=== PATIENT | female | born 1970 | race Two or more races ===

== ENCOUNTER → 2024-07-20 | Outpatient (CLI) | payer MEDICAID, SELFPAY ==
--- NOTE | 2024-07-20 14:30 | XR_ITS ---
Examination: Screening digital mammography, bilateral Computer aided detection 3-D breast Tomosynthesis, bilateral Date and time of exam: July 20, 2024 1409 hours Compared to mammograms dating to August 19, 2015 Indication: Screening Technique: Nonmagnified MLO, CC views of the breasts to been obtained, reconstructed from 3-D Tomosynthesis images. R2 computer aided detection program utilized for evaluation of suspicious masses and/or abnormal calcifications. 3-D Tomosynthesis images obtained. Findings: Scattered areas of fibroglandular density Stable focal asymmetry outer right and left breast Breast biopsy marker upper outer right breast 8mm nodular asymmetry retroareolar region right breast Impression: BI-RADS Category 0: Incomplete: Need additional imaging evaluation Recommend spot tomographic views retroareolar 2 exclude nodule retroareolar region right breast as well as right breast sonography to complete the workup
== END | disposition home or self-care (01) ==
PROVIDERS: Referring Provider Nurse Practitioner Family; Visit Provider Nurse Practitioner Family
DX: Z12.31 Encounter for screening mammogram for malignant neoplasm of breast (principal); N63.41 Unspecified lump in right breast, subareolar
CPT/HCPCS: 77063; 77067

== ENCOUNTER → 2025-01-30 | Outpatient (CLI) | payer MEDICAID, SELFPAY ==
--- NOTE | 2025-01-30 16:10 | XR_ITS ---
Examination: Left hip AP, lateral, AP pelvis 3 views Technique: Hip AP lateral, AP pelvis, 3 views Exam date and time: January 30, 2025, 1641 hours INDICATIONS: Left hip pain beginning 2 months ago FINDINGS: No left hip fracture or dislocation Minimal bilateral hip osteoarthritis Bones of the pelvis intact IMPRESSION: Minimal bilateral hip osteoarthritis.
--- NOTE | 2025-01-30 16:10 | XR_ITS ---
EXAMINATION: Lumbar spine 3 views TECHNIQUE: AP lateral: Lateral lower lumbar spine 3 views Date and time: January 30, 2025, 1649 hours INDICATION: Lower back pain beginning 2 months ago. FINDINGS: Adequate alignment lumbar vertebral bodies No lumbar fracture Mild diffuse lumbar disc narrowing Mild lumbar spondylosis IMPRESSION: Mild diffuse lumbar degenerative disc disease
--- NOTE | 2025-01-30 16:10 | XR_ITS ---
EXAMINATION: Left elbow 2 views TECHNIQUE: AP lateral left elbow 2 views Date and time: January 30, 2025, 1643 hours INDICATION: Elbow pain 1 month. FINDINGS: Minimal osteophyte formation coronoid process of the ulna No elbow fracture No elbow effusion No erosive arthritis No fracture IMPRESSION: Minimal osteoarthritis
== END | disposition home or self-care (01) ==
PROVIDERS: PCP Nurse Practitioner Family; Referring Provider Nurse Practitioner Family; Visit Provider Nurse Practitioner Family
DX: M19.022 Primary osteoarthritis, left elbow (principal); M16.0 Bilateral primary osteoarthritis of hip; M51.370 Other intervertebral disc degeneration, lumbosacral region with discogenic back pain only
CPT/HCPCS: 72100; 73070; 73502